=== PATIENT | female | born 1990 | race Caucasian/White ===

== ENCOUNTER 2018-07-22 17:29 | Emergency (ER) | payer OTHER, SELFPAY ==
[2018-07-22 17:44] VITALS: BP 104/71; PULSE 93; RESP 16; TEMP 37.3; O2SAT 98; BMI 25.7
[2018-07-22] MEDS: ONDANSETRON 4 MG ODT PO (17:49)
--- NOTE | 2018-07-22 19:56 | ED.ABDPAIN ---
HPI - Abdominal Pain <Brinda Rainey PA-C - Last Filed: 07/22/18 22:44> General Chief Complaint: Abdominal Pain Stated Complaint: NAUSEA, VOMITING, ABD PAIN Time Seen by Provider: 07/22/18 17:48 Source: patient Mode of arrival: ambulatory Limitations: no limitations History of Present Illness HPI narrative: This generally healthy 27-year-old female complains of protected vomiting with nausea that started at 3:00 a.m. this morning. She states that she was throwing up continuously so hard that she developed bruising around her eye. She has been feeling lightheaded and not able to keep down water and fluids today. She states she also had some slight diarrhea earlier this morning which has resolved. She states that she had persistent vomiting until here when she had some Zofran. She states that she has vomited only once since then. States that she thinks she felt warm from throwing up so much but not necessarily any fever that she knows of. She has not had blood in the stools with the diarrhea. She denies any hematuria dysuria or new urinary symptoms. She has an IUD in place and denies possibility of . She states that she did eat a pork dish at work yesterday prior to onset of the symptoms, cannot think of other exposures. She denies any chest pain or dyspnea. She denies any abdominal pain aside from being sore from retching. Related Data Allergies Allergy/AdvReac Type Severity Reaction Status Date / Time No Known Drug Allergies Allergy Verified 07/22/18 17:46 Review of Systems <Brinda Rainey PA-C - Last Filed: 07/22/18 22:44> Review of Systems ROS Unobtainable: All systems reviewed & are unremarkable except as noted in HPI and below PFSH <Brinda Rainey PA-C - Last Filed: 07/22/18 22:44> Medical History (Updated 07/22/18 @ 21:59 by Brinda Rainey PA-C) ADD (attention deficit disorder) (Chronic) Surgical History (Updated 07/22/18 @ 20:08 by Brinda Rainey PA-C) Status post repair of ligament of ankle (Resolved) Social History Smoking Status: Never smoker Social History Smoking Status: Never smoker Exam <Brinda Rainey PA-C - Last Filed: 07/22/18 22:44> Narrative Exam Narrative: GENERAL APPEARANCE: Patient resting comfortably, in no distress. HEENT: PERRL, EOMI, no scleral icterus, conjunctivae pink NECK: Supple LUNGS: Clear to auscultation bilaterally. HEART: Rate and rhythm regular, normal S1 and S2, no S3 or S4. ABDOMEN: Soft, nontender, nondistended, bowel sounds present x 4 quadrants, no masses palpable, no hepatosplenomegaly. EXTREMITIES: No edema DERMATOLOGIC: No jaundice or exanthem. Right infraorbital reddish purple ecchymoses NEUROLOGIC: Alert and oriented with normal speech and coordination Initial Vital Signs Initial Vital Signs: Vital Signs Temperature 99.2 F 07/22/18 17:44 Pulse Rate 93 H 07/22/18 17:44 Respiratory Rate 16 07/22/18 17:44 Blood Pressure 104/71 07/22/18 17:44 Pulse Oximetry 98 07/22/18 17:44 <Anitra Fu DO - Last Filed: 07/23/18 02:53> Initial Vital Signs Initial Vital Signs: Vital Signs Temperature 99.2 F 07/22/18 17:44 Pulse Rate 93 H 07/22/18 17:44 Respiratory Rate 16 07/22/18 17:44 Blood Pressure 104/71 07/22/18 17:44 Pulse Oximetry 98 07/22/18 17:44 Course <Brinda Rainey PA-C - Last Filed: 07/22/18 22:44> Additional Information: Patient was feeling markedly better at the time of discharge, requested to go home. She had not had any recurrent vomiting, headache largely resolved and felt like she wanted to go home and rest. She agreed to return if any acutely worsening symptoms, likely viral gastroenteritis Orders Ordered: ED Orders 07/22/18 20:00 Complete Blood Count AUTO DIFF Stat Comprehensive Metabolic Panel Stat Lipase Stat Discontinued Medications Sodium Chloride (Normal Saline 0.9%) 1,000 mls @ 1,000 mls/hr IV BOLUS ONE Stop: 07/22/18 21:03 Last Infusion: 07/22/18 21:15 Dose: 1,000 mls/hr Admin: 07/22/18 20:15 Dose: 1,000 mls/hr Sodium Chloride (Normal Saline 0.9%) 1,000 mls @ 1,000 mls/hr IV BOLUS ONE Stop: 07/22/18 21:42 Last Admin: 07/22/18 21:50 Dose: Not Given Ketorolac Tromethamine (Toradol) 30 mg IV NOW ONE Stop: 07/22/18 20:44 Last Admin: 07/22/18 20:47 Dose: 30 mg Ondansetron HCl (Zofran Odt) 4 mg PO NOW ONE Stop: 07/22/18 17:49 Last Admin: 07/22/18 17:49 Dose: 4 mg Ondansetron HCl (Zofran) 4 mg IV NOW ONE Stop: 07/22/18 20:05 Last Admin: 07/22/18 20:15 Dose: 4 mg Ondansetron HCl (Zofran Odt Prepack) 1 bottle MISC SEEINSTR ONE Stop: 07/22/18 21:56 Last Admin: 07/22/18 22:01 Dose: 1 bottle Vital Signs - 8 hr 07/22/18 17:44 Temperature 99.2 F Pulse Rate 93 H Respiratory Rate 16 Blood Pressure 104/71 Pulse Oximetry 98 <Anitra Fu DO - Last Filed: 07/23/18 02:53> Orders Ordered: ED Orders 07/22/18 20:00 Complete Blood Count AUTO DIFF Stat Comprehensive Metabolic Panel Stat Lipase Stat Discontinued Medications Sodium Chloride (Normal Saline 0.9%) 1,000 mls @ 1,000 mls/hr IV BOLUS ONE Stop: 07/22/18 21:03 Last Infusion: 07/22/18 21:15 Dose: 1,000 mls/hr Admin: 07/22/18 20:15 Dose: 1,000 mls/hr Sodium Chloride (Normal Saline 0.9%) 1,000 mls @ 1,000 mls/hr IV BOLUS ONE Stop: 07/22/18 21:42 Last Admin: 07/22/18 21:50 Dose: Not Given Ketorolac Tromethamine (Toradol) 30 mg IV NOW ONE Stop: 07/22/18 20:44 Last Admin: 07/22/18 20:47 Dose: 30 mg Ondansetron HCl (Zofran Odt) 4 mg PO NOW ONE Stop: 07/22/18 17:49 Last Admin: 07/22/18 17:49 Dose: 4 mg Ondansetron HCl (Zofran) 4 mg IV NOW ONE Stop: 07/22/18 20:05 Last Admin: 07/22/18 20:15 Dose: 4 mg Ondansetron HCl (Zofran Odt Prepack) 1 bottle MISC SEEINSTR ONE Stop: 07/22/18 21:56 Last Admin: 07/22/18 22:01 Dose: 1 bottle Vital Signs - 8 hr 07/22/18 17:44 Temperature 99.2 F Pulse Rate 93 H Respiratory Rate 16 Blood Pressure 104/71 Pulse Oximetry 98 MDM - Abdominal Pain <Brinda Rainey PA-C - Last Filed: 07/22/18 22:44> Lab Data Result diagrams: 07/22/18 20:00 07/22/18 20:00 Lab Results 07/22/18 07/22/18 Range/Units 20:00 20:00 WBC 7.5 (4.5-11.0) X10^3/uL RBC 4.44 (4.0-5.2) X10^6/uL Hgb 14.0 (12.0-16.0) g/dL Hct 41.5 (36-46) % MCV 93.5 (80-100) fL MCH 31.5 (26-34) PG MCHC 33.7 (30-36) % RDW 13.2 (11.6-14.8) % Plt Count 205 (150-400) X10^3/uL Neut % (Auto) 88.3 H (50-75) % Lymph % (Auto) 5.7 L (25-40) % [place] % (Auto) 5.6 (3-14) % Eos % (Auto) 0.1 L (2-4) % Baso % (Auto) 0.3 (0-2) % Neut # (Auto) 6700 (8977-2489) /uL Lymph # (Auto) 400 L (0797-0370) /uL [place] # (Auto) 400 (0-900) /uL Eos # (Auto) 0 (0-450) /uL Baso # (Auto) 0 (0-100) /uL Sodium 136 L (137-145) mmol/L Potassium 3.5 (3.4-5.1) mmol/L Chloride 102 (98-107) mmol/L Carbon Dioxide 24 (22-32) mmol/L BUN 10 (7-17) mg/dL Creatinine 0.60 (0.52-1.04) mg/dL Estimated GFR > 60.0 (>60) mL/min BUN/Creatinine Ratio 16.7 (6-22) Glucose 101 H (70-100) mg/dL Calcium 8.5 (8.4-10.2) mg/dL Total Bilirubin 0.5 (0.2-1.3) mg/dL AST 21 (14-36) IU/L ALT 32 (9-52) IU/L Alkaline Phosphatase 57 (38-126) U/L Total Protein 7.1 (6.3-8.2) g/dL Albumin 4.3 (3.5-5.0) g/dL Globulin 2.8 (1.7-4.1) g/dL Albumin/Globulin Ratio 1.5 (1.0-2.8) Lipase 35 (23-300) U/L Point of care testing: Point of Care Testing Test Results Negative Urine Dip Bedside Urine Glucose Negative Bedside Urine Bilirubin + 1 Bedside Urine Ketone - Negative Urine Specific [place] 1.025 Bedside Urine Occult Blood - Negative Bedside Urine pH 6.0 Bedside Urine Protein - Negative Bedside Urine Urobilinogen 1+ 2mg Bedside Urine Nitrite - Negative Bedside Urine Leukocytes - Negative Esterase <Anitra Fu, DO - Last Filed: 07/23/18 02:53> Lab Data Lab Results 07/22/18 07/22/18 Range/Units 20:00 20:00 WBC 7.5 (4.5-11.0) X10^3/uL RBC 4.44 (4.0-5.2) X10^6/uL Hgb 14.0 (12.0-16.0) g/dL Hct 41.5 (36-46) % MCV 93.5 (80-100) fL MCH 31.5 (26-34) PG MCHC 33.7 (30-36) % RDW 13.2 (11.6-14.8) % Plt Count 205 (150-400) X10^3/uL Neut % (Auto) 88.3 H (50-75) % Lymph % (Auto) 5.7 L (25-40) % [place] % (Auto) 5.6 (3-14) % Eos % (Auto) 0.1 L (2-4) % Baso % (Auto) 0.3 (0-2) % Neut # (Auto) 6700 (1634-4112) /uL Lymph # (Auto) 400 L (9986-0134) /uL [place] # (Auto) 400 (0-900) /uL Eos # (Auto) 0 (0-450) /uL Baso # (Auto) 0 (0-100) /uL Sodium 136 L (137-145) mmol/L Potassium 3.5 (3.4-5.1) mmol/L Chloride 102 (98-107) mmol/L Carbon Dioxide 24 (22-32) mmol/L BUN 10 (7-17) mg/dL Creatinine 0.60 (0.52-1.04) mg/dL Estimated GFR > 60.0 (>60) mL/min BUN/Creatinine Ratio 16.7 (6-22) Glucose 101 H (70-100) mg/dL Calcium 8.5 (8.4-10.2) mg/dL Total Bilirubin 0.5 (0.2-1.3) mg/dL AST 21 (14-36) IU/L ALT 32 (9-52) IU/L Alkaline Phosphatase 57 (38-126) U/L Total Protein 7.1 (6.3-8.2) g/dL Albumin 4.3 (3.5-5.0) g/dL Globulin 2.8 (1.7-4.1) g/dL Albumin/Globulin Ratio 1.5 (1.0-2.8) Lipase 35 (23-300) U/L Point of care testing: Point of Care Testing Test Results Negative Urine Dip Bedside Urine Glucose Negative Bedside Urine Bilirubin + 1 Bedside Urine Ketone - Negative Urine Specific [place] 1.025 Bedside Urine Occult Blood - Negative Bedside Urine pH 6.0 Bedside Urine Protein - Negative Bedside Urine Urobilinogen 1+ 2mg Bedside Urine Nitrite - Negative Bedside Urine Leukocytes - Negative Esterase Discharge Plan Departure Patient Disposition: Home Clinical Impression: Gastroenteritis Discharge Date/Time: 07/22/18 22:49 Interventions: ED Discharge Assessment Last Done: 07/22/18 22:00 Instructions: DI for Viral Gastroenteritis -- Adult, Gastroenteritis Diet Activity Restrictions/Additional Instructions: You can return home tonight since you are feeling better. No acute problem was found on your lab work or urine testing. Please rest tonight, continue drinking clear fluids. We have given you a few pills of the antinausea medicine that you had in your IV, you can let 1 tab dissolve under your tongue up to every 8 hours if you need more nausea medicine. As we talked about, you should return if you have acutely worsening symptoms again or new symptoms such as fever or abdominal pain. it is most likely that you have a viral intestinal infection typically these resolved within 48-72 hours. If you are feeling better tomorrow you can try small amounts of bland food such as bananas, white rice, white toast, and applesauce, and you can gradually advance back to your usual diet as you tolerate. Please follow-up with your PCP if you are not continuing to feel better in the next day or 2 Referrals: Hannah Bray MD [Non-Staff] - Stand Alone Forms: Work Release Note <Anitra Fu DO - Last Filed: 07/23/18 02:53> Cosign ED Attending Cospepitoature Attestation: I was immediately available in the department for consultation. Documentation has been reviewed. I agree with assessment and plan.
[2018-07-22 20:13] LABS: Add Manual Diff / Slide Review NO; Basophils Absolute Auto 0 /uL (0-100); Basophils Percent Auto 0.3 % (0-2); Eosinophils Absolute Auto 0 /uL (0-450); Eosinophils Percent Auto 0.1 % (2-4); Hematocrit 41.5 % (36-46); Lymphocytes Absolute Auto 400 /uL (1100-4500); Lymphocytes Percent Auto 5.7 % (25-40); Mean Corpuscular HGB Conc 33.7 % (30-36); Mean Corpuscular Hemoglobin 31.5 PG (26-34); Mean Corpuscular Volume 93.5 fL (80-100); Monocytes Absolute Auto 400 /uL (0-900); Monocytes Percent Auto 5.6 % (3-14); Neutrophils Absolute Auto 6700 /uL (1500-7000); Neutrophils Percent Auto 88.3 % (50-75); Platelet Count 205 X10^3/uL (150-400); Red Blood Cell Count 4.44 X10^6/uL (4.0-5.2); Red Cell Distribution Width 13.2 % (11.6-14.8); White Blood Cell Count 7.5 X10^3/uL (4.5-11.0)
[2018-07-22] MEDS: SODIUM CHLORIDE 0.9% 1,000 ML 1000 ML IV (20:15)
[2018-07-22] MEDS: ONDANSETRON 4 MG/2 ML INJ IV (20:15)
[2018-07-22 20:24] LABS: Alanine Aminotransferase 32 IU/L (9-52); Albumin 4.3 g/dL (3.5-5.0); Albumin Globulin Ratio 1.5 (1.0-2.8); Alkaline Phosphatase 57 U/L (38-126); Aspartate Aminotransferase 21 IU/L (14-36); BUN Creatinine Ratio 16.7 (6-22); Bilirubin Total 0.5 mg/dL (0.2-1.3); Blood Urea Nitrogen 10 mg/dL (7-17); Calcium 8.5 mg/dL (8.4-10.2); Carbon Dioxide 24 mmol/L (22-32); Chloride 102 mmol/L (98-107); Estimated Glomerular Filt Rate > 60.0 mL/min (>60); Globulin 2.8 g/dL (1.7-4.1); Glucose 101 mg/dL (70-100); HEMOLYSIS < 15 (0-50); Lipase 35 U/L (23-300); Potassium 3.5 mmol/L (3.4-5.1); Sodium 136 mmol/L (137-145); Total Protein 7.1 g/dL (6.3-8.2)
[2018-07-22] MEDS: KETOROLAC 60 MG/2 ML VIAL 30 MG IV (20:47)
[2018-07-22] MEDS: ONDANSETRON 4 MG ODT PREPACK 1 BOTTLE MISC (22:01)
== END 2018-07-22 22:49 | disposition home or self-care (01) ==
PROVIDERS: Emergency Provider Internal Medicine
DX: K52.9 Noninfective gastroenteritis and colitis, unspecified (principal); R42 Dizziness and giddiness
CPT/HCPCS: 36591; 80053; 81003; 81025; 83690; 85025; 96361; 96374; 96375; 99283; 99284; J1885; J2405

== ENCOUNTER 2019-04-08 08:27 | Emergency (ER) | payer OTHER, SELFPAY ==
[2019-04-08 08:39] VITALS: BP 117/67; PULSE 90; RESP 12; TEMP 36.1; O2SAT 98; BMI 26.5
[2019-04-08 08:55] LABS: WBC Urine None Seen (0-5/HPF)
--- NOTE | 2019-04-08 08:55 | ED.FEMALEGU ---
HPI - Female Genitourinary General Chief complaint: Urogenital-Female Stated complaint: sharp pain when peeing,pain in back Time Seen by Provider: 04/08/19 08:43 Source: patient Mode of arrival: Ambulatory Limitations: no limitations History of Present Illness HPI Narrative: Patient is a 28-year-old female who was previously diagnosed with UTI 5 days ago initially placed on Bactrim however she felt that her symptoms were getting worse she was changed over to Cipro 2 days ago she took 3 doses on the 1st day and 2 yesterday. His she now has bilateral flank pain nonradiating to the front. She feels nauseous and has a headache she vomited this morning. She overall does not have any abdominal pain. She initially had fever of 102 but has not had fever in many days. MD Complaint: dysuria and UTI Onset (ago): day(s) (5) Female Urogenital Radiation: L Flank and R Flank Related Data Home Medications Medication Instructions Recorded Confirmed ciprofloxacin HCl [Cipro] 500 mg PO BID 04/08/19 04/08/19 Previous Rx's Medication Instructions Recorded ondansetron 4 mg PO Q8H PRN #10 tab 04/08/19 Allergies Allergy/AdvReac Type Severity Reaction Status Date / Time No Known Drug Allergies Allergy Verified 04/08/19 08:46 Review of Systems Review of Systems Narrative: GENERAL: Denies chills, fatigue, malaise, fever, sweats, travel HEENT: Denies sinus pain, ear pain, sore throat, difficulty swallowing, neck pain RESPIRATORY: Denies dyspnea, cough, wheezing, hemoptysis, sputum. CARDIOVASCULAR: Denies chest pain, palpitations, orthopnea, edema GASTROINTESTINAL: Denies nausea, vomiting, abdominal pain, diarrhea, constipation, melena. : See HPI MUSCULOSKELETAL: Denies weakness, joint pain, or bony pain SKIN: No rash, no erythema, no pruritus NEUROLOGIC: Denies weakness, dizziness, headache, numbness, change in speech, confusion PSYCHIATRIC: No concerning psychosocial issues. 12 point review of systems is negative except for those stated above and HPI Patient History Medical History ADD (attention deficit disorder) (Chronic) Surgical History Status post repair of ligament of ankle (Resolved) alcohol intake frequency: holidays/special occasions only Substance Use Type: does not use Exam Initial Vital Signs Initial Vital Signs: Vital Signs Temperature 97.0 F L 04/08/19 08:39 Pulse Rate 90 04/08/19 08:39 Respiratory Rate 12 04/08/19 08:39 Blood Pressure 117/67 04/08/19 08:39 Pulse Oximetry 98 04/08/19 08:39 GENERAL: Well-appearing, well-nourished and in no acute distress. HEENT: Head atraumatic,EOMI, pupils reactive CARDIOVASCULAR: Regular rate and rhythm without murmurs, rubs or gallops. RESPIRATORY: Breath sounds equal bilaterally, no wheezes rales or rhonchi. ABDOMEN: Soft, nontender. Normoactive bowel sounds all 4 quadrants. No guarding or rebound. : Minimal bilateral CVA tenderness EXTREMITIES: Normal range of motion, no clubbing or edema. Neurovascularly intact NEUROLOGICAL: Alert and oriented x4.Normal gait and speech. SKIN: Warm, dry, no laceration, no petechiae, no rashes or lesions. Course Orders Ordered: ED Orders 04/08/19 08:32 Urine Microscopic Stat 04/08/19 09:00 Basic Metabolic Panel Stat Complete Blood Count AUTO DIFF Stat 04/08/19 09:52 CT head/brain wo con Stat Discontinued Medications Acetaminophen (Tylenol) 975 mg PO NOW ONE Stop: 04/08/19 09:43 Last Admin: 04/08/19 09:45 Dose: 975 mg Documented by: HELLENARRINGLAVERNE Sodium Chloride (Normal Saline 0.9%) 1,000 mls @ 1,000 mls/hr IV BOLUS ONE Stop: 04/08/19 09:52 Last Infusion: 04/08/19 10:30 Dose: 0 mls/hr Documented by: HELLENARRINGTO Admin: 04/08/19 09:05 Dose: 1,000 mls/hr Documented by: TOYIN Ketorolac Tromethamine (Toradol) 30 mg IV NOW ONE Stop: 04/08/19 08:54 Last Admin: 04/08/19 09:05 Dose: 30 mg Documented by: TOYIN Ondansetron HCl (Zofran) 4 mg IV NOW ONE Stop: 04/08/19 08:54 Last Admin: 04/08/19 09:06 Dose: 4 mg Documented by: HELLENABDIRIZAKTO Vital Signs Vital signs: Vital Signs - 8 hr 04/08/19 08:39 04/08/19 09:48 04/08/19 10:31 Temperature 97.0 F L Pulse Rate 90 80 72 Respiratory Rate 12 16 16 Blood Pressure 117/67 Blood Pressure [Left Arm] 107/65 102/57 L Pulse Oximetry 98 96 98 MDM - Female Genitourinary Lab Data Attestation: I reviewed the patient's lab results. Result diagrams: 04/08/19 09:00 04/08/19 09:00 Labs: Lab Results 04/08/19 04/08/19 04/08/19 Range/Units 08:32 09:00 09:00 WBC 6.8 (4.5-11.0) X10^3/uL RBC 4.07 (4.0-5.2) X10^6/uL Hgb 13.1 (12.0-16.0) g/dL Hct 36.8 (36-46) % MCV 90.4 (80-100) fL MCH 32.1 (26-34) PG MCHC 35.5 (30-36) % RDW 13.1 (11.6-14.8) % Plt Count 227 (150-400) X10^3/uL Neut % (Auto) 64.8 (50-75) % Lymph % (Auto) 24.6 L (25-40) % [place] % (Auto) 8.7 (3-14) % Eos % (Auto) 0.8 L (2-4) % Baso % (Auto) 1.1 (0-2) % Neut # (Auto) 4400 (1986-5413) /uL Lymph # (Auto) 1700 (9909-7695) /uL [place] # (Auto) 600 (0-900) /uL Eos # (Auto) 100 (0-450) /uL Baso # (Auto) 100 (0-100) /uL Sodium 136 L (137-145) mmol/L Potassium 3.8 (3.4-5.1) mmol/L Chloride 103 (98-107) mmol/L Carbon Dioxide 25 (22-32) mmol/L BUN 11 (7-17) mg/dL Creatinine 0.60 (0.52-1.04) mg/dL Estimated GFR > 60.0 (>60) mL/min BUN/Creatinine Ratio 18.3 (6-22) Glucose 104 H (70-100) mg/dL Calcium 9.3 (8.4-10.2) mg/dL Urine RBC 5-10/hpf H (0-5/HPF) Urine WBC None seen (0-5/HPF) Ur Squamous Epith Cells 5-10 /hpf H (0-5/HPF) Urine Bacteria Few (2-10) H (None) Ur Culture Indicated? Cult not indicated Point of Care Testing Test Results Negative Urine Dip Bedside Urine Glucose Negative Bedside Urine Bilirubin - Negative Bedside Urine Ketone - Negative Urine Specific [place] 1.025 Bedside Urine Occult Blood ++ Bedside Urine pH 6.0 Bedside Urine Protein - Negative Bedside Urine Urobilinogen - Negative Bedside Urine Nitrite - Negative Bedside Urine Leukocytes - Negative Esterase Imaging Data CT scan - head: Radiologist's Impression: PROCEDURE: CT HEAD/BRAIN WO CON INDICATIONS: headache x 2 days worsening TECHNIQUE: Noncontrast 4.5 mm thick angled axial sections acquired from the foramen magnum to the vertex, with coronal and sagittal reformats. For radiation dose reduction, the following was used: automated exposure control, adjustment of mA and/or kV according to patient size. COMPARISON: None. FINDINGS: Image quality: Excellent. CSF spaces: Basal cisterns are patent. No extra-axial fluid collections. Ventricles are normal in size and shape. Brain: No intracranial hemorrhage, mass, or mass effect. [place]-white matter interface is preserved. Skull and face: Calvarium and visualized facial bones are intact, without suspicious lesions. Sinuses: Visualized sinuses and mastoids are clear. IMPRESSION: 1. No acute intracranial abnormality. Dictated by: Darrel Weller M.D. on 04/08/2019 at 10:26 MDM Narrative Medical decision making narrative: Patient states that his flank pain has improved with Toradol however her headache continues to be an 8/10. She says it has really helped she has no numbness tingling or focal deficits. His home she denies any vision changes no neck pain no sign of meningitis. Blood work is overall reassuring. However due to his worsening had persistent headache will get head CT. Head CT is negative she overall appears well no leukocytosis pain has improved some. Recommend that she finish her Cipro as previously prescribed. Discharge Plan Departure Patient Disposition: Home Clinical Impression: Urinary tract infection Qualifiers: Urinary tract infection type: acute pyelonephritis Qualified Code(s): N10 - Acute pyelonephritis Headache Qualifiers: Headache type: unspecified Headache chronicity pattern: acute headache Intractability: not intractable Qualified Code(s): R51 - Headache Discharge Date/Time: 04/08/19 10:40 Instructions: DI for Urinary Tract Infection (UTI) Activity Restrictions/Additional Instructions: *You have been diagnosed with kidney infection *What to do: Increase fluid intake. *Continue to take medications as directed Finished Cipro as prescribed twice a day until gone Ibuprofen 800 mg every 8 hours if needed for pain Zofran 4 mg every 8 hours if needed for nausea vomiting *Follow up with your primary care provider in 2-3 days *Return to ER if you should have increased pain persistent vomiting or any new, worsening or concerning symptoms Prescriptions: New ondansetron 4 mg tablet,disintegrating 4 mg PO Q8H PRN (Reason: nausea and vomiting) Qty: 10 RF: 0 No Action ciprofloxacin HCl [Cipro] 500 mg Tablet 500 mg PO BID RF: 0
[2019-04-08 09:05] LABS: Bacteria Urine Few (2-10); Culture Indicated Urine Cult Not Indicated; RBC Urine 5-10/HPF (0-5/HPF); Squamous Epithelial Cell Urine 5-10 /HPF (0-5/HPF)
[2019-04-08] MEDS: SODIUM CHLORIDE 0.9% 1,000 ML 1000 ML IV (09:05)
[2019-04-08] MEDS: KETOROLAC 60 MG/2 ML VIAL 30 MG IV (09:05)
[2019-04-08] MEDS: ONDANSETRON 4 MG/2 ML INJ IV (09:06)
[2019-04-08 09:12] LABS: Add Manual Diff / Slide Review NO; Basophils Absolute Auto 100 /uL (0-100); Basophils Percent Auto 1.1 % (0-2); Eosinophils Absolute Auto 100 /uL (0-450); Eosinophils Percent Auto 0.8 % (2-4); Hematocrit 36.8 % (36-46); Hemoglobin 13.1 g/dL (12.0-16.0); Lymphocytes Absolute Auto 1700 /uL (1100-4500); Lymphocytes Percent Auto 24.6 % (25-40); Mean Corpuscular HGB Conc 35.5 % (30-36); Mean Corpuscular Hemoglobin 32.1 PG (26-34); Mean Corpuscular Volume 90.4 fL (80-100); Monocytes Absolute Auto 600 /uL (0-900); Monocytes Percent Auto 8.7 % (3-14); Neutrophils Absolute Auto 4400 /uL (1500-7000); Neutrophils Percent Auto 64.8 % (50-75); Platelet Count 227 X10^3/uL (150-400); Red Blood Cell Count 4.07 X10^6/uL (4.0-5.2); Red Cell Distribution Width 13.1 % (11.6-14.8); White Blood Cell Count 6.8 X10^3/uL (4.5-11.0)
[2019-04-08 09:24] LABS: BUN Creatinine Ratio 18.3 (6-22); Blood Urea Nitrogen 11 mg/dL (7-17); Calcium 9.3 mg/dL (8.4-10.2); Carbon Dioxide 25 mmol/L (22-32); Chloride 103 mmol/L (98-107); Estimated Glomerular Filt Rate > 60.0 mL/min (>60); Glucose 104 mg/dL (70-100); HEMOLYSIS < 15 (0-50); Potassium 3.8 mmol/L (3.4-5.1); Sodium 136 mmol/L (137-145)
[2019-04-08] MEDS: ACETAMINOPHEN 325 MG TABLET 975 MG PO (09:45)
[2019-04-08 09:48] VITALS: BP 107/65; PULSE 80; RESP 16; O2SAT 96
--- NOTE | 2019-04-08 09:52 | DI.CT.S_ITS ---
PROCEDURE: CT HEAD/BRAIN WO CON INDICATIONS: headache x 2 days worsening TECHNIQUE: Noncontrast 4.5 mm thick angled axial sections acquired from the foramen magnum to the vertex, with coronal and sagittal reformats. For radiation dose reduction, the following was used: automated exposure control, adjustment of mA and/or kV according to patient size. COMPARISON: None. FINDINGS: Image quality: Excellent. CSF spaces: Basal cisterns are patent. No extra-axial fluid collections. Ventricles are normal in size and shape. Brain: No intracranial hemorrhage, mass, or mass effect. [place]-white matter interface is preserved. Skull and face: Calvarium and visualized facial bones are intact, without suspicious lesions. Sinuses: Visualized sinuses and mastoids are clear. IMPRESSION: 1. No acute intracranial abnormality. Dictated by: Darrel Weller M.D. on 04/08/2019 at 10:26 Approved by: Darrel Weller M.D. on 04/08/2019 at 10:27
--- NOTE | 2019-04-08 10:06 | PC.NURSE ---
back from CT
[2019-04-08 10:31] VITALS: BP 102/57; PULSE 72; RESP 16; O2SAT 98
--- NOTE | 2019-04-08 10:54 | PC.NURSE ---
Dr. Fu was unable to send prescription electronically. Called in Prescription Ondansetron 4mg odt tab, Q8hour as needed, total of 10 tabs to [place], [place].
== END 2019-04-08 10:40 | disposition home or self-care (01) ==
PROVIDERS: Emergency Provider Emergency Medicine
DX: N39.0 Urinary tract infection, site not specified (principal); N10 Acute pyelonephritis; R51 Headache
CPT/HCPCS: 36415; 70450; 80048; 81003; 81015; 81025; 85025; 96361; 96374; 96375; 99284; J1885; J2405